=== PATIENT | female | born 1990 | race African-American/Black ===

== ENCOUNTER 2017-02-05 16:33 | Emergency (ER) | payer OTHER ==
[~2017-02-05 16:33] MED LIST: FLEXERIL10 MG PO; MOTRIN400 MG PO
== END 2017-02-05 16:37 | disposition home or self-care (01) ==
LOC: CED 16:33
DX: L02.811 Cutaneous abscess of head [any part, except face] (principal); F17.200 Nicotine dependence, unspecified, uncomplicated
CPT/HCPCS: 10060; 99283